=== PATIENT | male | born 1965 | race American Indian/Alaskan Native ===

== ENCOUNTER 2017-12-26 06:18 | Day surgery (SDC) | payer OTHER ==
[~2017-12-26 06:18] MED LIST: ADRENALIN IR ONE; ANCEF/STERILE WATER 2 GM/20 ML IV NR; MARCAINE 0.25% INFILTRATI ONE; NACL 0.9% IR ONE; XYLOCAINE 1%/ EPI 1:100,000 INFILTRATI ONE
[2017-12-26] MEDS ORDERED: XYLOCAINE 1%/ EPI 1:100,000 INFILTRATI ONE ×2 (07:39→08:47)
[2017-12-26] MEDS ORDERED: MARCAINE 0.25% INFILTRATI ONE ×2 (07:39→08:47)
[2017-12-26] MEDS ORDERED: ADRENALIN ONE (07:40)
[2017-12-26] MEDS ORDERED: VERSED ONE (08:16)
[2017-12-26] MEDS ORDERED: SUBLIMAZE ONE (08:16)
[2017-12-26] MEDS ORDERED: MARCAINE 0.5% 30 ML INFILTRATI ONE (08:16)
[2017-12-26] MEDS ORDERED: DECADRON ONE ×2 (08:17→08:46)
[2017-12-26] MEDS ORDERED: LACTATED RINGERS 1,000 ML ONE (08:36)
[2017-12-26] MEDS ORDERED: XYLOCAINE MPF 2% ONE (08:45)
[2017-12-26] MEDS ORDERED: DIPRIVAN 10 MG/ML IV ONE (08:45)
[2017-12-26] MEDS ORDERED: ZOFRAN ONE (08:46)
[2017-12-26] MEDS ORDERED: QUELICIN ONE (08:46)
[2017-12-26] MEDS ORDERED: ADRENALIN IR ONE (08:47)
[2017-12-26] MEDS ORDERED: DILAUDID ONE (08:47)
[2017-12-26] MEDS ORDERED: NACL 0.9% IR ONE (08:47)
[2017-12-26] MEDS ORDERED: ZEMURON IV ONE (08:55)
--- NOTE | 2017-12-26 09:09 | Anesthesia Day of Surgery ---
Anesthesia Day of Surgery - Day of Surgery Patient Examined: Yes Patient H&P Reviewed: Yes Patient is NPO: Yes
[2017-12-26] MEDS ORDERED: DILAUDID IV PRN (09:10)
[2017-12-26] MEDS ORDERED: ZOFRAN IV PRN (09:10)
--- NOTE | 2017-12-26 09:10 | Anesthesia Consultation ---
Anesthesia Consult and Med Hx Date of service: 12/26/17 - Airway Anesthetic Teeth Evaluation: Good ROM Head & Neck: Adequate Mental/Hyoid Distance: Adequate Mallampati Class: Class I Intubation Access Assessment: Good - Pulmonary Exam CTA: Yes - Pre-Operative Health Status ASA Pre-Surgery Classification: ASA2 Proposed Anesthetic Plan: General - Pulmonary Hx Smoking: No Hx Sleep Apnea: No (MIGUEL ANGEL PRE SCREEN LOW RISK) - Cardiovascular System Hx Hypertension: No - Other Systems Hx Cancer: No
[2017-12-26] MEDS ORDERED: NEO SYNEPHRINE/NS Syringe(OR USE) IV ONE (09:44)
[2017-12-26] MEDS ORDERED: NACL 0.9% 1000 ML 1,000 ML ONE (10:24)
--- NOTE | 2017-12-26 10:52 | Short Stay Summary ---
Short Stay Documentation - Allergies and Medications Current Medications: Allergies shellfish derived Adverse Reaction (Verified 12/13/17 11:48) Swelling AND NAUSEA Home Medications Medication Instructions Recorded Confirmed Last Taken Type No Known Home Medications [No 12/13/17 12/13/17 Unknown History Reported Home Medications] Active Medications Cefazolin Sodium (Ancef/Sterile Water 2 Gm/20 Ml) 2 gm IV PREOP NR Stop: 12/26/17 23:59 Hydromorphone HCl (Dilaudid) 0.5 mg IV Q10MIN PRN PRN Reason: Pain , Severe (7-10) Stop: 12/26/17 13:00 Ondansetron HCl (Zofran) 4 mg IV ONCE PRN PRN Reason: Nausea And Vomiting Stop: 12/26/17 12:00 Short Stay Discharge Plan Activity: advance as tolerated, fall precautions Weight Bearing Status: Non-Weight Bearing Diet: regular Wound: keep clean and dry, change dressing, per your surgeon's advice Special Instructions: smoking cessation, no heavy lifting, physical therapy Additional Instructions: sling on right arm. follow DC instruction sheet follow PT instruction sheet for biceps tenodesis Ice pacs pain meds prn Follow up with: EMILIANA KIM MD [Primary Care Provider] - 7 Days SPIKE FOOTE MD [Staff Physician] - 14 Days
[2017-12-26 13:29] VITALS: BP 121/85
== END 2017-12-26 13:13 | disposition home or self-care (01) ==
LOC: OR 06:18
PROVIDERS: ATTEND Orthopaedic Surgery
DX: S43.431A Superior glenoid labrum lesion of right shoulder, initial encounter (principal); G47.30 Sleep apnea, unspecified; Z79.899 Other long term (current) drug therapy; Z91.013 Allergy to seafood; Z88.2 Allergy status to sulfonamides; X58.XXXA Exposure to other specified factors, initial encounter; Y93.9 Activity, unspecified; Y92.89 Other specified places as the place of occurrence of the external cause; Y99.8 Other external cause status
CPT/HCPCS: 23405; 23440; 29823; 29824; 29826; 29827; A4217; J0171; J0330; J0690; J1100; J1170; J2250; J2370; J2405; J2704; J3010; J7030; J7120